=== PATIENT | female | born 1950 | race Caucasian/White ===

== ENCOUNTER 2021-04-10 09:00 | Observation (INO) | payer MEDICARE ==
[~2021-04-10] VITALS: Ht 160 cm; Wt 9.4 kg
[~2021-04-10 09:00] MED LIST: AEC81 PO; AMLO-257 PO; LOSA50TA64 PO; VENL50 PO
[2021-04-11 17:40] LABS: BASOPHILS % (AUTO) 0.7 % (0.0-5.0); EOSINOPHILS % (AUTO) 0.6 % (0.0-8.0); HEMATOCRIT 43.9 % (36-48); MEAN CORPUSCULAR HEMOGLOBIN 31.8 pg (27.0-33.0); MEAN CORPUSCULAR HGB CONC 33.5 g/dL (32.0-36.0); NEUTROPHILS % (AUTO) 66.3 % (40.0-77.0); PLATELET COUNT (AUTO) 204 K/uL (130-400); RED BLOOD CELL COUNT(AUTO) 4.62 MIL/uL (4.00-5.50); RED CELL DISTRIBUTION WIDTH 13.9 % (11.0-15.5); WHITE BLOOD COUNT (AUTO) 10.3 K/uL (4.8-10.8)
[2021-04-11 17:46] LABS: APPEARANCE,URINE Clear (CLEAR); BILIRUBIN,URINE Negative (NEGATIVE); COLOR,URINE Yellow (YELLOW); GLUCOSE, URINE (UA) Negative (NEGATIVE); KETONES,URINE Trace mg/dL (NEGATIVE); LEUKOCYTE ESTERASE ,URINE Trace (NEGATIVE); NITRATE,URINE Negative (NEGATIVE); OCCULT BLOOD,URINE Negative (NEGATIVE); PH,URINE 5.5 (5.0-8.0); PROTEIN,URINE Negative (NEGATIVE)
[2021-04-11 17:56] VITALS: BP 145/75
[2021-04-11 17:59] LABS: INR 0.91 (0.85-1.15)
[2021-04-11 18:02] LABS: CREATININE 0.9 mg/dL (0.5-1.5); POTASSIUM 4.2 mmol/L (3.5-5.1)
[2021-04-11 18:22] LABS: BACTERIA,URINE Few /HPF (None Seen); RBC,URINE None Seen /HPF (0-1); WBC,URINE 0-1 /HPF (0-1)
[2021-04-14] VITALS (25 sets, daily range): BP systolic 121–167; BP diastolic 56–96
[2021-04-14] MEDS ORDERED: 0.9% NACL 500ML IV.SOLN 0 ML IV ONE (07:03)
[2021-04-14] MEDS ORDERED: CEFAZOLIN SODIUM 1 GM VIAL ONE ×2 (07:03→08:02)
[2021-04-14] MEDS ORDERED: LACTATED RINGERS 1000ML 1,000 ML IV ONE (07:05)
[2021-04-14] MEDS: GENTAMICIN SULFATE 240 MG in 0.9%NACL 100ML 100 ML IV SCH ×2 (08:44→13:54)
[2021-04-14] MEDS ORDERED: GLYCOPYRROLATE 1 MG/5 ML SYRINGE ONE (08:56)
[2021-04-14] MEDS ORDERED: PROPOFOL 10 MG/ML 20ML VIAL IV ONE (08:56)
[2021-04-14] MEDS ORDERED: SUCCINYLCHOLINE CHLORIDE 20 MG/ML 10 ML VIAL ONE ×2 (08:56→08:57)
[2021-04-14] MEDS ORDERED: SUCCINYLCHOLINE 200MG/10ML SYR ONE (08:56)
[2021-04-14] MEDS ORDERED: ONDANSETRON 4MG INJ ONE (08:56)
[2021-04-14] MEDS ORDERED: NEOSTIGMINE 5MG/5ML SYR IV ONE (08:56)
[2021-04-14] MEDS ORDERED: LIDOCAINE PF 100MG/5ML (2%) SYRINGE 5ML ONE ×2 (08:56→08:57)
[2021-04-14] MEDS ORDERED: MIDAZOLAM HCL 1 MG/ML 2ML VIAL ONE (08:56)
[2021-04-14] MEDS ORDERED: ROCURONIUM 10MG/1ML SYR 10 MG/ML ML ONE (08:57)
[2021-04-14] MEDS ORDERED: FENTANYL CITRATE PF 50 MCG/1 ML 2ML VIAL ONE (08:57)
[2021-04-14] MEDS ORDERED: CEFAZOLIN SODIUM 2 GM VIAL IV ONE (09:30)
[2021-04-14] MEDS ORDERED: MEPERIDINE-PF 25 MG/ML SYG ONE ×2 (11:23→12:18)
[2021-04-14] MEDS: ACETAMINOPHEN 500 MG TABLET PO SCH ×2 (11:30→20:44)
[2021-04-14] MEDS ORDERED: KETOROLAC 15MG/ML VIAL (15MG/ML) IV PRN (11:30)
[2021-04-14] MEDS ORDERED: POTASSIUM CHLORIDE 20MEQ/100ML 100 ML IV PRN (11:30)
[2021-04-14] MEDS ORDERED: CALCIUM CARB 500MG PO PRN (11:30)
[2021-04-14] MEDS ORDERED: LIDOCAINE HCL-MPF 1% 2ML VIAL IV PRN (11:30)
[2021-04-14] MEDS: 0.9%NACL 1000ML 1,000 ML IV SCH ×2 (11:30→20:46)
[2021-04-14] MEDS ORDERED: DiphenhydrAMINE HCL 50 MG/ML VIAL IVP PRN (11:30)
[2021-04-14] MEDS ORDERED: INSULIN HUMULIN R 100 UNIT/ML 3ML SQ SCH (11:30)
[2021-04-14] MEDS ORDERED: ONDANSETRON 4MG INJ IVP PRN (11:30)
[2021-04-14] MEDS ORDERED: POTASSIUM CHLORIDE 10% ELIXIR 20 MEQ/15 ML UDCUP PO PRN (11:30)
[2021-04-14] MEDS ORDERED: FERROUS FUMARATE 324 MG TABLET PO PRN (11:30)
[2021-04-14] MEDS ORDERED: [UNRECOGNIZED DRUG - OTHER] PO (13:50)
[2021-04-14] MEDS ORDERED: PRAS25CA9 PO (13:50)
[2021-04-14] MEDS ORDERED: ALPR2TAB2 PO (13:50)
[2021-04-14] MEDS ORDERED: LEVO25CA4 PO (13:50)
[2021-04-14] MEDS ORDERED: NALO25TA4 PO (13:50)
[2021-04-14] MEDS ORDERED: PROG100C11 PO (13:50)
[2021-04-14] MEDS ORDERED: MORP30TA71 PO (13:50)
[2021-04-14] MEDS ORDERED: MAGN200T4 PO (13:50)
[2021-04-14] MEDS: TRAMADOL HCL 50 MG TABLET PO PRN (15:05)
[2021-04-14] MEDS: CEFAZOLIN SODIUM 1 GM VIAL IVP SCH (16:04)
[2021-04-14] MEDS: ASPIRIN 81 MG EC TAB PO SCH (20:43)
[2021-04-14] MEDS: MAGNESIUM OXIDE 400 MG TABLET PO SCH (20:43)
[2021-04-14] MEDS: CELECOXIB 200 MG CAP PO SCH (20:43)
[2021-04-14] MEDS: LOSARTAN 50 MG TABLET PO SCH (20:43)
[2021-04-14] MEDS: LEVOTHYROXINE 25 MCG TABLET PO SCH (20:43)
[2021-04-14] MEDS: FAMOTIDINE 20MG TAB PO SCH (20:43)
[2021-04-14] MEDS: AMLODIPINE 5 MG TAB PO SCH (20:43)
[2021-04-14] MEDS: PROGESTERONE, MICRONIZED 100 MG CAP PO SCH (20:50)
[2021-04-14] MEDS: PRASTERONE 25 MG PO SCH (20:50)
[2021-04-14] MEDS ORDERED: MAGNESIUM 200 MG PO SCH (21:00)
[2021-04-14] MEDS ORDERED: NON-FORMULARY MEDICATION 1 EACH (Levothyroxine Sodium (Levothyroxine) 25 MCG) PO SCH (21:00)
[2021-04-14] MEDS ORDERED: ALPRAZOLAM 1 MG TAB PO PRN (23:30)
[2021-04-15] MEDS: CEFAZOLIN SODIUM 1 GM VIAL IVP SCH (00:18)
[2021-04-15 03:59] LABS: HEMATOCRIT 37.5 % (36-48); MEAN CORPUSCULAR HEMOGLOBIN 31.2 pg (27.0-33.0); MEAN CORPUSCULAR HGB CONC 33.3 g/dL (32.0-36.0); MEAN CORPUSCULAR VOLUME 93.5 fL (79-99); RED BLOOD CELL COUNT(AUTO) 4.01 MIL/uL (4.00-5.50); RED CELL DISTRIBUTION WIDTH 13.3 % (11.0-15.5)
[2021-04-15 04:05] VITALS: BP 161/89
[2021-04-15 04:10] LABS: CREATININE 0.8 mg/dL (0.5-1.5); POTASSIUM 3.3 mmol/L (3.5-5.1)
[2021-04-15] MEDS: 0.9%NACL 1000ML 1,000 ML IV SCH (07:30)
[2021-04-15 08:10] VITALS: BP 106/59
[2021-04-15] MEDS: ASPIRIN 81 MG EC TAB PO SCH ×2 (08:31→19:59)
[2021-04-15] MEDS: POLYETHYLENE GLYCOL 3350 17 GM POWD.PACK PO SCH (08:31)
[2021-04-15] MEDS: CELECOXIB 200 MG CAP PO SCH ×2 (08:31→19:59)
[2021-04-15] MEDS: FAMOTIDINE 20MG TAB PO SCH ×2 (08:31→19:58)
[2021-04-15] MEDS: KCL 20 MEQ ERTAB PO PRN ×3 (08:32→17:24)
[2021-04-15] MEDS: [UNRECOGNIZED DRUG - OTHER] PO SCH (08:37)
[2021-04-15 10:44] VITALS: BP 110/58
[2021-04-15] MEDS: ACETAMINOPHEN 500 MG TABLET PO SCH ×3 (11:17→20:00)
[2021-04-15 15:23] VITALS: BP 111/60
[2021-04-15] MEDS: MAGNESIUM OXIDE 400 MG TABLET PO SCH (19:58)
[2021-04-15] MEDS: LEVOTHYROXINE 25 MCG TABLET PO SCH (19:59)
[2021-04-15] MEDS: AMLODIPINE 5 MG TAB PO SCH (19:59)
[2021-04-15] MEDS: LOSARTAN 50 MG TABLET PO SCH (19:59)
[2021-04-15] MEDS: PROGESTERONE, MICRONIZED 100 MG CAP PO SCH (20:03)
[2021-04-15] MEDS: PRASTERONE 25 MG PO SCH (20:03)
[2021-04-15] MEDS: MORPHINE 15MG SR TAB PO PRN (20:05)
[2021-04-15 20:58] VITALS: BP 129/74
[2021-04-15 23:49] VITALS: BP 131/69
[2021-04-16] MEDS: ACETAMINOPHEN 500 MG TABLET PO SCH ×2 (04:24→11:30)
[2021-04-16] MEDS: [UNRECOGNIZED DRUG - OTHER] PO SCH (04:28)
[2021-04-16 04:34] VITALS: BP 101/59
[2021-04-16 07:50] VITALS: BP 125/76
[2021-04-16] MEDS: ASPIRIN 81 MG EC TAB PO SCH (08:21)
[2021-04-16] MEDS: POLYETHYLENE GLYCOL 3350 17 GM POWD.PACK PO SCH (08:21)
[2021-04-16] MEDS: FAMOTIDINE 20MG TAB PO SCH (08:21)
[2021-04-16] MEDS: CELECOXIB 200 MG CAP PO SCH (08:21)
[2021-04-16] MEDS: MORPHINE 15MG SR TAB PO PRN (08:23)
[2021-04-16 10:37] VITALS: BP 126/78
[2021-04-16] MEDS: TRAMADOL HCL 50 MG TABLET PO PRN (13:20)
[2021-04-16 15:37] VITALS: BP 123/76
[2021-04-16] MEDS ORDERED: AEC81 PO (17:26)
[2021-04-16] MEDS ORDERED: HYDR-4060 PO (17:26)
[2021-04-17] MEDS ORDERED: BISACODYL 10 MG SUPP.RECT RC PRN (11:30)
== END 2021-04-16 18:57 | disposition home or self-care (01) ==
LOC: DAHIP 04-14 06:16 → EDSTATUS 04-14 09:00 → 4AH 04-14 13:08
PROVIDERS: ADMIT Orthopaedic Surgery; ATTEND Orthopaedic Surgery
DX: M23.52 Chronic instability of knee, left knee (principal); Z20.822 Contact with and (suspected) exposure to COVID-19; M17.12 Unilateral primary osteoarthritis, left knee; S82.092 Other fracture of left patella; I10 Essential (primary) hypertension; J44.9 Chronic obstructive pulmonary disease, unspecified; F41.9 Anxiety disorder, unspecified; E03.9 Hypothyroidism, unspecified; E66.9 Obesity, unspecified; G89.4 Chronic pain syndrome; K76.0 Fatty (change of) liver, not elsewhere classified; R29.6 Repeated falls; F17.200 Nicotine dependence, unspecified, uncomplicated; Z85.828 Personal history of other malignant neoplasm of skin; Z91.81 History of falling; Z96.652 Presence of left artificial knee joint; Z86.73 Personal history of transient ischemic attack (TIA), and cerebral infarction without residual deficits; Z79.899 Other long term (current) drug therapy; W19.XXXD Unspecified fall, subsequent encounter
CPT/HCPCS: 27380; 27486; 36415 ×2; 64447; 76942; 80048 ×2; 81001; 82948 ×2; 85025; 85027; 85610; 87088; 87635; 87641; 88300; 96365; 96375; 96376; 97039 ×5; 97116 ×3; 97161; 97530 ×2; A4213; A4215; A4221; A4222; A4223 ×2; A4600; A4649 ×5; A4663; A4930 ×2; A9272; C1713; C1776; G0378 ×53; J0330 ×3; J0690 ×5; J1580; J1885; J2001 ×2; J2175 ×2; J2250; J2405; J2704; J2710; J3010; J3490; J7030 ×2; J7120; 93005; J7040

== ENCOUNTER → 2021-09-17 | Outpatient (CLI) | payer OTHER, MEDICARE ==
[~2021-09-17] MED LIST changes: +ALPR2TAB2 PO; +HYDR-4060 PO; +LEVO25CA4 PO; +MAGN200T4 PO; +MORP30TA71 PO; +NALO25TA4 PO; +PRAS25CA9 PO; +PROG100C11 PO; -VENL50 PO; +[UNRECOGNIZED DRUG - OTHER] PO
== END | disposition home or self-care (01) ==
LOC: RAH 08:27
PROVIDERS: ATTEND Family Medicine
DX: Z12.31 Encounter for screening mammogram for malignant neoplasm of breast (principal)
CPT/HCPCS: 77067